=== PATIENT | male | born 1960 | race Two or more races ===

== ENCOUNTER → 2016-08-30 | Outpatient (CLI) | payer BC, MEDICARE ==
[~2016-08-30] MED LIST: CIPRO500 MG PO; FLOMAX0.4 MG ORAL; NADOLOL40 MG ORAL; NITROFURANTOIN100 M2 ORAL; NORCO 5-325 TA1 EACH ORAL; ONDANSETRON ODT4 MG ORAL; PREVACID30 MG ORAL; TRAMADOL HCL50 MG ORAL
--- NOTE | 2016-09-03 14:00 | Diagnostic Imaging Report ---
Indication:Abdominal pain Technique: Grayscale and duplex Doppler imaging of the abdomen performed. Comparison: None Findings: Liver is heterogeneous and shows some micronodular in the lumbar surface. The spleen is enlarged measuring 16 cm. There is no ascites. Gallbladder is not seen. CBD is between 6 and 7 mm. The demonstrated part of the pancreas, aorta and IVC, both kidneys, appear unremarkable. There is no biliary ductal dilatation identified. Doppler evaluation of the main portal vein shows patency. There is no ascites. No hydronephrosis seen. Impression: Stigmata of chronic liver disease/cirrhosis and portal hypertension with splenomegaly. Status post cholecystectomy
== END | disposition home or self-care (01) ==
LOC: ULS 09:23
DX: R10.9 Unspecified abdominal pain (principal)
CPT/HCPCS: 76700